=== PATIENT | female | born 1995 | race Two or more races ===

== ENCOUNTER 2024-12-25 06:08 | Inpatient (IN) | payer BC ==
[~2024-12-25 06:08] MED LIST: Carboprost Tromethamine 250 MCG/1 mL Vial IM PRN; Oxytocin/Lactated Ringers 30 UNIT/500 ML BAG IV SCH; Sodium Chloride 0.9% 10 ML Syringe FLUSH PRN
[2024-12-25 06:54] LABS: PLATELET COUNT,PLT 235.0 10^3/uL (150-450); RED BLOOD CELL COUNT 4.08 10^6/uL (4.2-5.4); WHITE BLOOD CELL COUNT,WBC 8.7 10^3/uL (5.0-10.0)
[2024-12-25] MEDS: Lactated Ringers 1,000 ML IV SCH (07:10)
[2024-12-25] MEDS: Lactated Ringers 1,000 ML IV ONE (07:13)
[2024-12-25] MEDS ORDERED: ePHEDrine 50 MG/ML SDV IVPUSH PRN (08:51)
[2024-12-25] MEDS ORDERED: Ropivacaine 200 MG in Premix Bag 1 BAG EPIDUR SCH (09:00)
[2024-12-25] MEDS: Oxytocin/Normal Saline 30 UNIT/500 ML BAG IV SCH (11:25)
[2024-12-25] MEDS: Ondansetron 4 MG/2 ML SDV IVPUSH PRN (13:15)
[2024-12-25] MEDS ORDERED: Oxytocin 10 Units/1 ML SDV IM PRN (14:11)
[2024-12-25] MEDS: Benzocaine/Menthol 20%-0.5% Spray 78 GM Cannister TOP PRN (14:46)
[2024-12-26] MEDS: Prenatal Multivitamin with Calcium/Folic Acid/Iron Tab PO SCH (09:09)
[2024-12-26 13:20] LABS: PLATELET COUNT,PLT 211.0 10^3/uL (150-450); RED BLOOD CELL COUNT 3.61 10^6/uL (4.2-5.4); WHITE BLOOD CELL COUNT,WBC 9.4 10^3/uL (5.0-10.0)
== END 2024-12-26 15:38 | disposition home or self-care (01) | DRG 560 ==
LOC: DL.OB 06:08 → OBSVTOIN 13:41 → DL.OB 13:41
PROVIDERS: ADMIT Family Medicine; ATTEND Family Medicine
PROC: 10E0XZZ Delivery of Products of Conception, External Approach (ICD-10-PCS; principal; 2024-12-25)
PROC: 10907ZC Drainage of Amniotic Fluid, Therapeutic from Products of Conception, Via Natural or Artificial Opening (ICD-10-PCS; 2024-12-25)
PROC: 3E0R3BZ Introduction of Anesthetic Agent into Spinal Canal, Percutaneous Approach (ICD-10-PCS; 2024-12-25)
PROC: 00HU33Z Insertion of Infusion Device into Spinal Canal, Percutaneous Approach (ICD-10-PCS; 2024-12-25)
DX: O99.02 Anemia complicating childbirth (principal); Z37.0 Single live birth; O99.344 Other mental disorders complicating childbirth; O69.81X0 Labor and delivery complicated by cord around neck, without compression, not applicable or unspecified; O73.1 Retained portions of placenta and membranes, without hemorrhage; F41.9 Anxiety disorder, unspecified; D62 Acute posthemorrhagic anemia; O99.345 Other mental disorders complicating the puerperium; F53.0 Postpartum depression; Z3A.38 38 weeks gestation of pregnancy
CPT/HCPCS: 36415; 51701; 59409; 85027; A9270-GY; J2405; J2590; J7120